=== PATIENT | female | born 1935 | race African-American/Black ===

== ENCOUNTER 2018-03-15 13:20 | Emergency (ER) | payer MEDICARE, BC ==
--- NOTE | 2018-03-15 14:41 | ER Document Report ---
ED Fall - General Stated Complaint: FALL/PELVIC PAIN Time Seen by Provider: 03/15/18 13:51 Mode of Arrival: Stretcher Information source: Patient Notes: Patient is an 82-year-old morbidly obese female comes in emergency room by EMS with complaint of bilateral hip pain. Patient states that she was attempting to use her walker when she lost control of the walker it went forward and she fell backwards landing on her buttocks and her hips. Patient denies any other trauma has no other complaints. She denies any loss of consciousness or hitting her head. She complains of right hip pain and left hip pain. She states when she fell backwards she is not sure how she landed but thinks in a sitting position. TRAVEL OUTSIDE OF THE [place] IN LAST 30 DAYS: No - HPI Occurred: Just prior to arrival Where: Home Context: Tripped Location of injury/pain: Buttocks, Hip, Pelvic Adult Front & Back: 1 - Severe pain discomfort area 2 - Severe pain discomfort area Quality of pain: No pain, Dull, Sharp, Throbbing Severity: Moderate Pain Level: 3 - Related data Allergies/Adverse Reactions: dairy Allergy (Uncoded 08/05/15 00:38) Past Medical History - General Information source: Patient - Social History Smoking Status: Never Smoker Chew tobacco use (# tins/day): No Smoking Education Provided: No Frequency of alcohol use: None Drug Abuse: None Family History: Reviewed & Not Pertinent Patient has suicidal ideation: No Patient has homicidal ideation: No - Past Medical History Cardiac Medical History: Reports: Hx Hypertension, Hx Heart Murmur Pulmonary Medical History: Denies: Hx Tuberculosis Neurological Medical History: Denies: Hx Seizures GI Medical History: Reports: Hx Gastroesophageal Reflux Disease Musculoskeletal Medical History: Reports Hx Arthritis Psychiatric Medical History: Reports: Hx Depression Past Surgical History: Reports: Hx Appendectomy, Hx Breast Surgery - LUMPECTOMY , Hx Cholecystectomy, Hx Hysterectomy. Denies: Hx Pacemaker - Immunizations Hx Diphtheria, Pertussis, Tetanus Vaccination: - UNKNOWN Review of Systems - Review of Systems EENT: No symptoms reported Cardiovascular: No symptoms reported Respiratory: No symptoms reported Gastrointestinal: No symptoms reported Genitourinary: No symptoms reported Female Genitourinary: No symptoms reported Musculoskeletal: See HPI, Back pain, Muscle pain, Muscle stiffness Skin: No symptoms reported Hematologic/Lymphatic: No symptoms reported Neurological/Psychological: No symptoms reported -: Yes All other systems reviewed and negative Physical Exam - Notes Notes: Patient is awake alert and oriented 4. She is a moderate amount of discomfort. Patient smells of urine heavily. - General General appearance: Alert In distress: None - HEENT Head: Normocephalic, Atraumatic Eyes: Normal Conjunctiva: Normal Cornea: Normal Extraocular movements intact: Yes Eyelashes: Normal Pupils: PERRL Mouth/Lips: Other - Physical exam patient's oral cavity shows she has multiple missing teeth throughout upper and lower. - Respiratory Respiratory status: No respiratory distress Chest status: Nontender Breath sounds: Normal Chest palpation: Normal - Cardiovascular Rhythm: Regular Heart sounds: Normal auscultation Murmur: No - Abdominal Inspection: Normal Distension: No distension Bowel sounds: Normal Tenderness: Nontender Organomegaly: No organomegaly - Back Back: Normal, Nontender. No: Deformity/step-off, CVA tenderness, Vertebra tenderness - Extremities General upper extremity: Normal inspection, Normal ROM General lower extremity: Tender, Edema, Normal color, Normal temperature, Other - Examination of patient's lower extremities show that she has visualization left hip appears to be rotated outward and shortened from the right side.. No: Normal weight bearing Hip: Tender, Pain with ROM, Unable to bear weight, Other - Physical exam bilateral hips show patient has pulmonary discomfort with palpation of both hips. When pressures applied to the front of the pelvis patient winces in pain. There is noticeable pain with passive range of motion of the right hip as well as the left hip. Patient is very reluctant even with passive range of motion to allow movement of the left hip. Also examination of patient's right and left hip show no signs of ecchymosis or abrasions that are noted on physical examination. Patient has straight leg raises are negative on the right side she lifts it without any problems at all and on the left side she can lift but there is some discomfort and pain at about 15-20. Thigh: Nontender, Unable to bear weight - Neurological Neuro grossly intact: Yes Cognition: Normal Orientation: AAOx4 Chris Coma Scale Eye Opening: Spontaneous [place] Coma Scale Verbal: Oriented [place] Coma Scale Motor: Obeys Commands [place] Coma Scale Total: 15 Speech: Normal Course - Re-evaluation Re-evalutation: 03/15/18 18:33 This Adan John physician medical receptionist medical assistant I have provided care to Mrs. Pitts since she was brought in the hospital by EMS. She is a very pleasant woman on my physical examination. Patient is been here approximately 4-1/2 hours and due to the fact that I have been keeping an eye on her. Patient was brought in after she sustained a fall at home where her walker went one way and she fell backwards onto her hip. X-rays were negative from bilateral hip standpoint all the way down through the knees. Patient started originally hurting on the right side and it progressed to the left side. She has been able to lift her right leg completely in the left leg minimally. Effort is the questionable factor here at this time. It seems when we walk away she moves lower extremities better than where there. Given the fact that the x-rays of all been negative I have elected to send patient home. I have given her a 5 mg hydrocodone here in the emergency room and does not seem to have affected her according to patient. I had discussed with her increasing that to a stronger medication and patient question which medication that would be, and I informed her this would be Percocet 5 mg. She kind a question me as to if that would be enough to handle her pain. I informed her of the deep bruising is something that takes time to get over the pain medication only blocks a certain portion of it and that she is going to have to apply effort to get through the discomfort. After this discussion patient's came in and his walker/ wheelchair and had been sitting at the bed. I went back and explained to him again and the that we had no sign of fractures and I gave him copies of the x-ray reports. I informed him that she may need to go see her primary care physician and possibly have physical therapy evaluation and maybe even therapy itself. I have informed him that she needs to ice down the parts that hurt for the next 24-48 hours. I felt as if everything was okay I left the room to finish up the paperwork when nursing reported to me that the was getting agitated that he felt that she should be admitted pain control. 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 He became confrontational he stood up out of his chair entered my personal space [id number] and told me that he was a man and that even though he was old he can still handle himself. I backed up away from and told him he needed to calm down. He then demanded that I bring the nurse in because he never told her that he was upset and that he never told her that he wanted to speak to me. Nurse attempted explained to him that she understood that he would been getting angry and that she informed him that she was going to get me to see if I could help with the problem and again patient became irate. At this point patient became so agitated he was not making any sense and he was making threats and both myself and the nurse left the room. I did contact business continuity planner and she informed me I could place an order for them to have her a evaluated for either detention or home health. I had a disorder to the file and I informed the charge nurse of this. I am going to write the patient for the Percocet, a wheelchair, and for the evaluation. I still feel she can be discharged home. I do believe patient is able to be safely discharged to her home with her she attempts to walk or use a wheelchair is up to her. - Laboratory Laboratory results interpreted by me: 03/15/18 16:55 Ur Leukocyte Esterase TRACE H Discharge - Discharge Clinical Impression: Contusion, hip Qualifiers: Encounter type: initial encounter Laterality: unspecified laterality Qualified Code(s): S70.00XA - Contusion of unspecified hip, initial encounter Hip strain Qualifiers: Encounter type: initial encounter Laterality: unspecified laterality Qualified Code(s): S76.019A - Strain of muscle, fascia and tendon of unspecified hip, initial encounter Condition: Stable Disposition: HOME, SELF-CARE Instructions: Contusion ([facility]), Muscle Strain ([facility]) Additional Instructions: Home and rest. Medication as prescribed. Ice to the parts that hurt 3 times a day. Use your walker at all times when ambulatory. As far as the situation here in the emergency room is gone I have been kind enough to set you up with an evaluation by discharge planning for either detention or home health physical therapy. He will be contacted by discharge planning either tomorrow or Sunday. In the meantime you can ice as we discussed you can use a walker as we discussed and you can use a wheelchair which I will give you a order for. Should you have any other concerns or problems return to ER for a recheck. Prescriptions: Cyclobenzaprine HCl [Flexeril 10 mg Tablet] 10 mg PO TIDP PRN #12 tablet PRN Reason: Oxycodone HCl/Acetaminophen [Percocet 5-325 mg Tablet] 1 tab PO Q4H PRN #10 tablet PRN Reason: Referrals: SHERYL PAN MD [Primary Care Provider] - Follow up as needed
[2018-03-15] MEDS ORDERED: HYDROCODONE/ACETAMINOPHEN 5-325 MG TABLET PO ONE (15:35)
--- NOTE | 2018-03-15 15:40 | RADIOLOGY REPORT (SQ) ---
EXAM DESCRIPTION: FEMUR BILATERAL 2 VIEWS COMPLETED DATE/TIME: 03/15/2018 3:29 pm REASON FOR STUDY: Fall from standing COMPARISON: None. NUMBER OF VIEWS: Two views. TECHNIQUE: Two radiographic images acquired of the right and left femur to include hip and knee in a t least one projection. LIMITATIONS: None. FINDINGS: MINERALIZATION: Normal. BONES: No acute fracture. Severe degenerative changes in both knees. No worrisome bone lesions. SOFT TISSUES: No obvious swelling or foreign body. OTHER: No other significant finding. IMPRESSION: NEGATIVE STUDY OF THE RIGHT AND LEFT FEMURS. NO RADIOGRAPHIC EVIDENCE FOR ACUTE INJURY. SEVERE DEGENERATIVE CHANGES IN BOTH KNEES. TECHNICAL DOCUMENTATION: JOB ID: [id number] [employer]- All Rights Reserved Reading location - IP/workstation name: [email or web address]-[email or web address]
--- NOTE | 2018-03-15 15:41 | RADIOLOGY REPORT (SQ) ---
EXAM DESCRIPTION: HIP BILATERAL COMPLETED DATE/TIME: 03/15/2018 3:29 pm REASON FOR STUDY: Fall from standing COMPARISON: None. NUMBER OF VIEWS: Two views TECHNIQUE: AP pelvis and additional frog-leg view of both hips. LIMITATIONS: None. FINDINGS: MINERALIZATION: Normal. HIPS: No acute fracture or dislocation. No worrisome bone lesions. PELVIS AND SACRUM: No acute fracture or dislocation. No worrisome bone lesions. PUBIS AND ISCHIUM: No acute fracture. LOWER LUMBAR SPINE: No acute findings as visualized. SOFT TISSUES: No findings. OTHER: No other significant finding. IMPRESSION: NEGATIVE STUDY OF THE PELVIS AND HIPS. TECHNICAL DOCUMENTATION: JOB ID: [id number] [employer]- All Rights Reserved Reading location - IP/workstation name: [email or web address]
--- NOTE | 2018-03-15 15:42 | RADIOLOGY REPORT (SQ) ---
EXAM DESCRIPTION: L SPINE 2 VIEWS COMPLETED DATE/TIME: 03/15/2018 3:29 pm REASON FOR STUDY: Fall from standing COMPARISON: None. NUMBER OF VIEWS: Two views. TECHNIQUE: AP and lateral radiographic images acquired of the lumbar spine. LIMITATIONS: None. FINDINGS: MINERALIZATION: Normal. SEGMENTATION: Normal. No transitional anatomy. ALIGNMENT: Normal. VERTEBRAE: Maintained height. No fracture or worrisome bone lesion. DISCS: Extensive degenerative disc disease. POSTERIOR ELEMENTS: Pedicles and facets are intact. Facet arthropathy. No pars defect or posterior arch defects. HARDWARE: None in the spine. PARASPINAL SOFT TISSUES: Normal. PELVIS: Intact as visualized. No fractures or worrisome bone lesions. SI joints intact. OTHER: No other significant finding. IMPRESSION: DEGENERATIVE CHANGES. NO ACUTE FINDINGS. TECHNICAL DOCUMENTATION: JOB ID: [id number]- All Rights Reserved Reading location - IP/workstation name: [email or web address]
[2018-03-15 17:11] LABS: APPEARANCE,URINE CLEAR; BILIRUBIN,URINE NEGATIVE (NEGATIVE); COLOR,URINE YELLOW; GLUCOSE, URINE NEGATIVE (NEGATIVE); KETONES,URINE NEGATIVE (NEGATIVE); LEUKOCYTE ESTERASE,URINE TRACE (NEGATIVE); NITRITE,URINE NEGATIVE (NEGATIVE); PROTEIN,URINE NEGATIVE (NEGATIVE); URINE SPECIFIC GRAVITY 1.009; UROBILINOGEN,URINE NEGATIVE mg/dL (<2.0)
== END 2018-03-15 19:30 | disposition home or self-care (01) ==
LOC: ER 13:20
DX: S70.00XA Contusion of unspecified hip, initial encounter (principal); S76.019A Strain of muscle, fascia and tendon of unspecified hip, initial encounter; W01.0XXA Fall on same level from slipping, tripping and stumbling without subsequent striking against object, initial encounter; Y92.009 Unspecified place in unspecified non-institutional (private) residence as the place of occurrence of the external cause; E66.01 Morbid (severe) obesity due to excess calories; I10 Essential (primary) hypertension; Z90.49 Acquired absence of other specified parts of digestive tract; Z90.710 Acquired absence of both cervix and uterus
CPT/HCPCS: 99284; 51701; 87086; 81001; 72100; 73522; 73552; A9270